=== PATIENT | male | born 1955 | race Caucasian/White ===

== ENCOUNTER 2018-10-10 08:51 | Emergency (ER) | payer OTHER ==
--- NOTE | 2018-10-10 09:16 | EDPHY ---
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 He reports that he stepped up onto the curb and lost his footing he reports he fell backwards onto his tailbone and then his head whipped back and hit the cement. He reports that he was days for a few seconds but denies LOC. Patient reports that he noted bleeding in the back of his head any does take aspirin daily. He denies any neck pain/dizziness /nausea/vomiting/amnesia. Patient was ambulatory at the scene. No history of concussions. Patient complains of a dull aching headache in the back of his head where he sustained the contusion and laceration. Patient denies any back pain, radiation, change in bowel or bladder habits, difficulty ambulating. Modifying Factors: Direct pressure Comment: ROS: A comprehensive 10 system review of systems is otherwise negative aside from elements mentioned in the history of present illness. MEDICAL/SURGICAL/SOCIAL HISTORY: Medical history: CAD, HTN, DM2 Surgical history: CABG Social history: Former smoker. Employed. . Has children and grandchildren. CONSTITUTIONAL: Polite and cooperative adult white male, awake and alert, no obvious distress HEENT: Contusion noted to the occipital lobe with small superficial laceration measuring 1.5 cm with scant active bleeding, normocephalic, PERRL, EOMI. no globe entrapment, no raccoon eyes. Wears glasses. no Harris signs.Tympanic membranes clear. No tympanic membrane rupture. Nares patent; no septal hematoma. Oropharynx clear, no exudate and moist pink mucosa. No malocclusion. no dental trauma. Airway patent. No lymphadenopathy. NECK: supple, mild midline tenderness, flexion 45 degrees, extension 45 degrees , right and left lateral flexion 45 degrees. No meningismus. Cardiovascular: Normal S1/S2, regular rate, regular rhythm, without murmur rub or gallop. PULMONARY/CHEST: Symmetrical and nontender. no crepitus. Clear to auscultation bilaterally. Good air movement. No accessory muscle usage. ABDOMEN: Soft, nondistended, nontender, no ecchymosis, no rebound, no guarding , no peritoneal signs, no masses or organomegaly. No CVAT. PELVIC: no pain with rocking; bilateral hips flexion 125 degrees, extension 30 degrees, with no pain internal rotation and no pain external rotation. BACK: No midline tenderness, no paraspinous spasm, deep tendon reflexes 2/2, no pain with straight leg raise EXTREMITIES: 2/2 pulses, no deformities, no clubbing, no cyanosis or edema. NEUROLOGICAL: no focal neuro deficits. GCS 15. SKIN: Warm and dry, no erythema. no rash. Good capillary refill. Source: Patient Exam Limitations: No limitations - Personal History Current Tetanus/Diphtheria Vaccine: Yes Current Tetanus Diphtheria and Acellular Pertussis (TDAP): Yes - Medical/Surgical History Hx Asthma: No Hx Chronic Respiratory Disease: No Hx Diabetes: Yes Hx Cardiac Disease: Yes Hx Renal Disease: No Hx Cirrhosis: No Hx Alcoholism: No Hx HIV/AIDS: No Hx Splenectomy or Spleen Trauma: No Other PMH: CABG, HTN, DM2, - Social History Smoking Status: Former smoker Constitutional: Initial Vital Signs Temperature (C) 36.9 C 10/10/18 08:57 Heart Rate 72 10/10/18 08:57 Respiratory Rate 16 10/10/18 08:57 Blood Pressure 175/82 H 10/10/18 08:57 O2 Sat (%) 97 10/10/18 08:57 O2 Delivery Mode Room Air Allergies/Adverse Reactions: No Known Allergies Allergy (Unverified 10/10/18 08:57) Home Medications: Medication Instructions Recorded Aspirin EC 81 mg (*) 10/10/18 Atorvastatin Calcium 10/10/18 Losartan Potassium 10/10/18 Metformin 1000 mg 10/10/18 Metoprolol Tartrate 10/10/18 Medical Decision Making - Diagnostics Imaging Results: Imaging Impressions Cervical Spine CT 10/10/18 09:15 Impression: 1. No acute posttraumatic abnormality identified. If there is persistent pain or neurologic deficit, consider MRI and/or flexion and extension views if clinically indicated. 2. Degenerative change as above with [id number] spinal canal narrowing from C4 through C7. Findings discussed with Naila Koo 10/10/2018 at 10:04. Head CT 10/10/18 09:15 Impression: 1. No acute intracranial findings. 2. Diffuse cerebral atrophy with periventricular and subcortical low attenuation consistent with chronic microvascular ischemic gliosis. Findings discussed with Naila Koo 10/10/2018 at 10:04. Procedures: Procedure: Laceration repair. Verbal consent was obtained from the patient. The 1.5 mm, vertical, superficial , simple laceration on the occipital was anesthetized in the usual fashion using 3 mL of 1% lidocaine with epinephrine. The wound was irrigated, draped and explored to its base with a gloved finger. There were no deep structures involved. No tendon injury was identified. The wound was repaired with #2 seferino. Good hemostasis was achieved and patient tolerated procedure well. Bacitracin and pressure dressing applied.. The procedure was performed by myself. ED Course/Re-evaluation: Vital signs reviewed and show elevated blood pressure upon arrival. Fall was mechanical in nature. Scalp laceration repaired with 2 seferino. Based on nexus protocol of age and on aspirin, head CT imaging ordered Based on nexus protocol with midline tenderness, cervical CT imaging ordered Patient has no back pain and has benign back exam. Therefore lumbar imaging not ordered. 1000: Called by radiologist, Dr. Perez, who advised head CT scan shows no acute intracranial process. Cervical CT scan shows no acute fracture, disc herniation, nerve impingement but does show degenerative disc disease C4-C7. Verbal and written wound care instructions provided to the patient. Patient is currently not displaying signs of concussion or neurological deficits. This patient was seen under the supervision of my secondary supervising physician. I evaluated care for this patient with attending. Discussed this patient with Dr. Rivera who did not see the patient. Differential Diagnosis: Head injury including but not limited to concussion, skull fracture, intraparenchymal contusion, subarachnoid, subdural and epidural hematoma. Departure - Departure Disposition: Home, Routine, Self-Care Clinical Impression: Degenerative disc disease, cervical Laceration of occipital region of scalp without complication Qualifiers: Encounter type: initial encounter Qualified Code(s): S01.01XA - Laceration without foreign body of scalp, initial encounter Condition: Good Instructions: Staple Care (ED), Degenerative Disc Disease (ED), Facial Laceration (ED) Additional Instructions: Keep the seferino dry for 48 hours. After 48 hours, you may wash the site daily with mild soap and water; then pat dry and apply [id number] antibiotic ointment. Take Tylenol 650 mg every 4 hours and/or Ibuprofen 600 mg every 8 hours with food as needed for pain. You sustained a closed head injury and it is recommended that you observe concussion precautions. Please do not participate in any contact sports or moderate and strenuous activity until all symptoms have resolved or cleared by PCP/Concussion Clinic. Take Tylenol 650 mg every 4 hours and/or Ibuprofen 600 mg every 8 hours with food as needed for pain/headache. Take Zofran every 4-6 hours as needed for nausea, vomiting. Consume a minimum of 8-10 glasses of water or electrolyte fluid replacement drinks that include Gatorade, Powerade, Pedialyte. If symptoms last longer than 1 week, please follow-up with Dr. James in the concussion Clinic. Return to the ER immediately if you have progressive headaches, neurologic deficits, gait abnormality, visual disturbance, slurred speech, or any other symptom that concerns you. Wound Care Follow-Up: Removal of seferino in [5-7] days. Staple removal is complimentary in uncomplicated cases. Infection or abnormal findings would require reevaluation by the MD. In that case, you may be billed. Referrals: KATELIN CANAS [Other] - As per Instructions
[2018-10-10 10:32] VITALS: BP 150/96
== END 2018-10-15 13:07 | disposition home or self-care (01) ==
PROC: 0HQ0XZZ Repair Scalp Skin, External Approach (ICD-10-PCS; principal; 2018-10-10)
DX: S01.01XA Laceration without foreign body of scalp, initial encounter (principal); I10 Essential (primary) hypertension; W00.1XXA Fall from stairs and steps due to ice and snow, initial encounter; Y92.481 Parking lot as the place of occurrence of the external cause